=== PATIENT | female | born 2000 | race Caucasian/White ===

== ENCOUNTER 2024-03-06 09:38 | Inpatient (IN) | payer BC, MEDICAID, SELFPAY ==
[2024-03-06] VITALS (40 sets, daily range): BP systolic 116–143; BP diastolic 59–97; PULSE 54–100; RESP 17; TEMP 35.9–36.7; O2SAT 80–99; BMI 27.4
[2024-03-06 10:05] LABS: Basophils % 0.3 %; Eosinophils % 0.3 %; Hematocrit 37.3 % (36-47); Lymphocytes # 1.7 10^3/uL (0.8-4.8); Lymphocytes % 11.4 %; Mean Corpuscular HGB Conc 32.2 g/dL (30-55); Mean Corpuscular Hemoglobin 26.3 pg (27-33); Mean Corpuscular Volume 81.8 fl (85-98); Mean Platelet Volume 11.7 fL (7.4-10.4); Monocytes % 6.8 %; Neutrophils # 12.06 10^3/uL (1.8-7.7); Neutrophils % 80.5 %; Nucleated Red Blood Cells % 0 %; Platelet Count 330 10^3/cmm (157-399); Red Blood Count 4.56 10^6/uL (3.85-5.65); Red Cell Distribution Width 12.3 % (12.1-15.1); White Blood Count 14.96 10^3/uL (3.29-11.43)
--- NOTE | 2024-03-06 11:10 | ANES.PROC ---
Anesthesia Procedures Procedure/Date: 03/06/24 Epidural: Time Out Performed: Yes Consents Signed: Procedure Consent Consent: requested by attending/covering physician, from patient, risks and benefits reviewed and patient agrees to proceed Lumbar Level: L3-L4 Epidural position: sitting Epidural procedure: sterile prep of area, 1% lidocaine to numb the area, negative for paresthesia passed, neg for paresthesia, test dose given, no systemic response, sterile dressing applied, L.U.D. no apparent complications and 0.2% Ropiavacaine @ mls/hr (10 ml) Additional Comments: Epidural successful on second attempt. ANMOL at 7cm Catheter threaded to 12cm 100mcg Fentanyl given via epidural. 2% Lidocaine given after test dose 5ml total. Patient reported adequate analgesia.
[2024-03-06] MEDS: betamethasone susp 6 mg/mL 1 mL (per mL) 12 MG IM (12:11)
[2024-03-06 12:42] LABS: Amphetamines Screen Urine Negative (Negative); Barbiturates Screen Urine Negative (Negative); Benzodiazepines Screen Urine Negative (Negative); Cocaine Screen Urine Negative (Negative); Opiate Screen Urine Negative (Negative); PCP Screen Urine Negative (Negative); THC Screen Urine Negative (Negative)
--- NOTE | 2024-03-06 13:39 | P.HP_ITS ---
Providers/Chief Complaint 2 Admitting Physician: Ilya Benites MD HPI OUTPATIENT ADMITTING CLERK History of Present Illness Rubi Pierce is a 23 year old female G1, P0 with an estimated gestational age at 34+2 weeks transferred from [facility] [place] with complaint of pain. She is from [facility]. No records on care available at this time. Present Details : 1 Para: 0 Review of Systems 2 Narrative: movement: no Const: Denies: fever(s) or chills Card: Denies: chest pain, palpitations, irregular heart rhythm or syncope Resp: Denies: dyspnea GI: Denies: abdominal pain, nausea or vomiting : Reports: other (Contraction pain); Denies: flank pain, dysuria, urinary frequency or urinary urgency Musc: Denies: back pain or extremity swelling Skin/Breast: Denies: rash, pruritus, breast pain, nipple discharge or breast mass Neuro: Denies: headache(s), difficulty walking, dizziness or restless legs Psych: Denies: anxiety, depression or mood swings Endo: Denies: polyuria, tired all the time, cold intolerance or heat intolerance Hilario/Lymph: Denies: easy bruising, easy bleeding, petechiae or purpura All/Imm: Denies: urticaria Medications/Allergies Home Medications Medication Instructions Recorded Confirmed Last Taken Type No Known Home Medications 03/07/24 03/07/24 Unknown History Allergies Allergy/AdvReac Type Severity Reaction Status Date / Time Alpha-Gal Allergy ALGY-Anaphy Verified 03/06/24 18:32 (Dkyxixrhg-Udohb-8,3-Gala laxis Beef Containing Products Allergy ALGY-Anaphy Verified 03/06/24 18:32 laxis pork derived (porcine) Allergy ALGY-Anaphy Verified 03/06/24 18:32 laxis Vitals/I&O/Wt Last Vital Signs Temp 96.6 F L 03/06/24 10:54 Pulse 61 03/06/24 13:09 BP 130/85 03/06/24 13:37 Pulse Ox 80 L 03/06/24 10:47 O2 Del Method Room Air 03/06/24 09:20 Weight last 48 hrs Weight 68.039 kg Physical Exam 2 Narrative: GA: Alert and oriented ?3. Lungs: Clear to auscultation bilaterally. Heart: Regular rhythm and rate. Abdomen: Gravid, full the height equals dates, nontender. NUTRITION INTERN: SVE; dilation: 5-6 cm, effacement: 90%, station: 0, presentation: Cephalic, membranes: Intact memory. Extremities: no edema, no cyanosis, no calves pain. heart tracing: Basal rate: 140's bpm, Variability: moderate, Accelerations: present, Decelerations: absent, Contraction: q3min. Urinary Catheter Management: Lloyd: Cath Placed During This Visit: yes Urinary Catheter Date of Insertion: 03/06/24 Urinary Catheter Time of Insertion: 11:30 Data 03/07/24 01:57 Results Labs OB ([facility]): 2 Blood Type B Positive 03/06/24 Antibody Screen Negative 03/06/24 Hct 29.9 % (36-47) L 03/07/24 Hgb 9.90 g/dL (11.27-16.99) L 03/07/24 Rho(D) Type Rh positive 03/06/24 Plt Count 265 10^3/cmm (157-399) 03/07/24 C.trachomatis RNA (TMA) Pending 03/06/24 N.gonorrhoeae RNA (TMA) Pending 03/06/24 Chlamydia/GC Comment Pending 03/06/24 Urine Opiates Screen Negative ng/mL (Negative) 03/06/24 Ur Barbiturates Screen Negative ng/mL (Negative) 03/06/24 Ur Phencyclidine Scrn Negative ng/mL (Negative) 03/06/24 Ur Amphetamines Screen Negative ng/mL (Negative) 03/06/24 U Benzodiazepines Scrn Negative ng/mL (Negative) 03/06/24 Urine Cocaine Screen Negative ng/mL (Negative) 03/06/24 U Marijuana (THC) Screen Negative ng/mL (Negative) 03/06/24 A&P Assessment and plan (1) 34 weeks gestation of : Mrs. Alvarez 23-year-old female G1, P0 with an estimated gestational age at 34 weeks +2 days. Transfer from [facility] with a chief complaint of pain upon her arrival cervix was dilated to 6 cm 90% effacement. 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 (2) Active labor: Plan Anticipate vaginal delivery Attestations 2 Medical Necessity Statement*: In my professional opinion per admitting diagnosis Coding Level of Care Code Acute Code for Chg Fwd Diagnoses 34 weeks gestation of Z3A.34 Active labor O60.00
--- NOTE | 2024-03-06 13:42 | P.PCNOB_ITS ---
Delivery Note: Date of delivery: March 06, 2024 Pre-delivery diagnoses: labor Post-delivery diagnoses: delivered labor Procedure: Spontaneous vaginal delivery Op report anesthesia: Epidural Delivering Physician: Ilya Benites MD Estimated blood loss (mL): 300 Pre-Delivery Course: 23-year-old female G1, P0 with an estima swapna stational age at 34 weeks, can transfer in active labor from [facility] [place]. care from provider in [facility]. Delivery: The patient was noted to be complete and pushing, so was placed in the dorsal lithotomy position, prepped and draped in the usual sterile fashion for a vaginal delivery. Pt. Noted to have epidural anesthesia. At 1324 the patient delivered a viable at 34+2 weeks male infant weighing 2270 g with scores of 8 and 8 at one and five minutes, respectively. The vertex was delivered spontaneously over intact perineum. The patient was asked to push and the head delivered spontaneously in the CIERRA position, over an intact perineum. A nuchal cord was checked and 1 noted, and relieved around head as necessary. The anterior shoulder delivered easily and the posterior shoulder followed. The remainder of the infant was easily delivered and the oropharynx and nasopharynx was bulb suctioned. The infant was noted to have spontaneous cry and spontaneous movement of all four extremities. The cord was clamped x 2 and cut and noted to have 2 arteries and one vein. The infant was passed to the mother's abdomen where nursing and tip scourer personnel were in attendance. The placenta delivered intact spontaneously and the uterus was explored. 20 units of Pitocin was placed in the IV bag to firm the uterus. Examination of the cervix and vaginal vault did not reveal any lacerations. A vaginal pack was then placed. Examination of the perineum showed no lacerations. The vaginal pack was then removed. The patient tolerated this procedure well, and recovered in L&D with her infant in their LDR room. All sponge and needle counts were correct. Post-Delivery Status: Good and hemodynamically stable Coding Level of Care Code Acute Code for Chg Fwd
[2024-03-06] MEDS: ibuprofen 800 mg tablet PO ×2 (16:07→21:15)
[2024-03-06] MEDS: benzocaine-menthol 78 gm Canister 1 SPRAY TOPICAL (16:08)
[2024-03-06] MEDS: docusate sodium 100 mg Capsule PO (19:16)
[2024-03-07 02:02] LABS: Hematocrit 29.9 % (36-47); Mean Corpuscular HGB Conc 33.1 g/dL (30-55); Mean Corpuscular Hemoglobin 26.8 pg (27-33); Mean Platelet Volume 11.5 fL (7.4-10.4); Platelet Count 265 10^3/cmm (157-399); Red Blood Count 3.69 10^6/uL (3.85-5.65); Red Cell Distribution Width 12.2 % (12.1-15.1); White Blood Count 21.59 10^3/uL (3.29-11.43)
[2024-03-07 05:37] VITALS: BP 101/50; PULSE 67; RESP 16; TEMP 36.7; O2SAT 99
[2024-03-07] MEDS: PRENATAL VIT NO.130/IRON/FOLIC 1 EACH TABLET PO (09:26)
[2024-03-07] MEDS: ibuprofen 800 mg tablet PO (09:26)
[2024-03-07] MEDS: docusate sodium 100 mg Capsule PO (09:26)
--- NOTE | 2024-03-07 09:55 | P.DS_ITS ---
Discharge Providers SENIOR ENVIRONMENTAL TECHNICIAN Date of Admission: 03/06/24 09:38 Date of Discharge: 03/07/24 Attending Provider at Admission: Ilya Benites MD Attending Provider at Discharge: Ilya Benites MD Diagnoses at Discharge Discharge Diagnosis (1) 34 weeks gestation of : Status: Acute (2) Active labor: Status: Acute Reason for Visit Reason for Visit: Brief History: Mrs. Pierce 23-year-old female G1, P0 with an estimated gestational age at 34 weeks +2 days was transferred from [facility] in active labor. Upon her arrival she was 6 cm dilated with 90% effacement and regular contractions. Hospital Course Hospital Course Mrs. Stan France-year-old female Remi, P1 status post spontaneous vaginal delivery at 34 weeks +2 days. She was admitted, given antibiotics, and steroid for lung maturation. She progressed rapidly to have a spontaneous vaginal delivery of a male with a weight 2270 g, Apgars 8/8. The has been transferred to [facility] and the patient requested to be discharged earlier than 24 hours observation to go to [place] where the infant was transferred to. She is afebrile hemodynamically stable day 1. Ambulating without difficulty. Tolerating diet well. She was counseled regarding pelvic rest for 6 weeks (no sex, no tampons, no vaginal douches). Return to the emergency room if any fever, increased bleeding or pain. Information Peripartum Data: Delivery Method: Vaginal Physical Exam Narrative: GA; alert and oriented x 3 HEENT: normal Breasts: engorged Nipples - skin intact Lungs; clear to auscultation Heart: regular rhythm, no murmurs. Abd: Appropriately tender. BS+. Uterine fundus below umbilicus. No Fundal Tenderness. Perineum: normal lochia. Extremities: no edema, no cyanosis, no tenderness. Urinary Catheter Management: Lloyd: Cath Placed During This Visit: yes Urinary Catheter Date of Insertion: 03/06/24 Urinary Catheter Time of Insertion: 11:30 Discharge Data Studies Completed and Pending Pending at discharge Category Date Time Status Chlamydia/Gonorrh RNA,TMA URO Stat Lab 03/06/24 09:50 Received Laboratory Results WBC 21.59 10^3/uL (3.29-11.43) H 03/07/24 01:57 RBC 3.69 10^6/uL (3.85-5.65) L 03/07/24 01:57 Hgb 9.90 g/dL (11.27-16.99) L 03/07/24 01:57 Hct 29.9 % (36-47) L 03/07/24 01:57 MCV 81.0 fl (85-98) L 03/07/24 01:57 MCH 26.8 pg (27-33) L 03/07/24 01:57 MCHC 33.1 g/dL (30-55) 03/07/24 01:57 RDW 12.2 % (12.1-15.1) 03/07/24 01:57 Plt Count 265 10^3/cmm (157-399) 03/07/24 01:57 MPV 11.5 fL (7.4-10.4) H 03/07/24 01:57 Neut % (Auto) 80.5 % 03/06/24 09:50 Lymph % (Auto) 11.4 % 03/06/24 09:50 [place] % (Auto) 6.8 % 03/06/24 09:50 Eos % (Auto) 0.3 % 03/06/24 09:50 Baso % (Auto) 0.3 % 03/06/24 09:50 Neut # (Auto) 12.06 10^3/uL (1.8-7.7) H 03/06/24 09:50 Lymph # (Auto) 1.7 10^3/uL (0.8-4.8) 03/06/24 09:50 [place] # (Auto) 1.0 10^3/uL (0.2-0.9) H 03/06/24 09:50 Eos # (Auto) 0.0 10^3/uL (0.0-0.8) 03/06/24 09:50 Baso # (Auto) 0.0 10^3/uL (0.0-0.1) 03/06/24 09:50 Nucleated RBC % (auto) 0 % 03/06/24 09:50 Nucleated RBCs # 0.0 /100WBC 03/06/24 09:50 Urine Opiates Screen Negative ng/mL (Negative) 03/06/24 12:30 Ur Barbiturates Screen Negative ng/mL (Negative) 03/06/24 12:30 Ur Phencyclidine Scrn Negative ng/mL (Negative) 03/06/24 12:30 Ur Amphetamines Screen Negative ng/mL (Negative) 03/06/24 12:30 U Benzodiazepines Scrn Negative ng/mL (Negative) 03/06/24 12:30 Urine Cocaine Screen Negative ng/mL (Negative) 03/06/24 12:30 U Marijuana (THC) Screen Negative ng/mL (Negative) 03/06/24 12:30 Blood Type B Positive 03/06/24 09:50 Rho(D) Type Rh positive 03/06/24 09:50 Antibody Screen Negative 03/06/24 09:50 Vitals Last Vital Signs Temp 98.0 F 03/07/24 05:37 Pulse 67 03/07/24 05:37 Resp 16 03/07/24 05:37 BP 101/50 03/07/24 05:37 Pulse Ox 99 03/07/24 05:37 O2 Del Method Room Air 03/07/24 05:37 Results Labs OB ([facility]): Blood Type B Positive 03/06/24 Antibody Screen Negative 03/06/24 Hct 29.9 % (36-47) L 03/07/24 Hgb 9.90 g/dL (11.27-16.99) L 03/07/24 Rho(D) Type Rh positive 03/06/24 Plt Count 265 10^3/cmm (157-399) 03/07/24 C.trachomatis RNA (TMA) Pending 03/06/24 N.gonorrhoeae RNA (TMA) Pending 03/06/24 Chlamydia/GC Comment Pending 03/06/24 Urine Opiates Screen Negative ng/mL (Negative) 03/06/24 Ur Barbiturates Screen Negative ng/mL (Negative) 03/06/24 Ur Phencyclidine Scrn Negative ng/mL (Negative) 03/06/24 Ur Amphetamines Screen Negative ng/mL (Negative) 03/06/24 U Benzodiazepines Scrn Negative ng/mL (Negative) 03/06/24 Urine Cocaine Screen Negative ng/mL (Negative) 03/06/24 U Marijuana (THC) Screen Negative ng/mL (Negative) 03/06/24 Discharge Plan Discharge Patient Disposition: Home Condition: Stable Prescriptions: New ibuprofen 800 mg tablet 800 mg PO TID PRN (Reason: pain) Qty: 60 0RF ferrous sulfate [Iron (ferrous sulfate)] 325 mg (65 mg iron) tablet 325 mg PO BID Qty: 60 0RF docusate sodium [Colace] 100 mg capsule 100 mg PO BID Qty: 60 0RF acetaminophen 325 mg capsule 325 mg PO Q4H PRN (Reason: fever or pain) Qty: 60 0RF Discharge Orders: Discharge Order (Routine); Ordered 03/07/24 Ordered By: Ilya Benites Referrals: Ilya Benites MD [Physician] - 6 Weeks Discharge Diet: Usual diet Discharge Activity: Limit activity as instructed Patient Instructions: Depression (DC), Bleeding (DC), Preeclampsia and Eclampsia After Delivery (GEN), Hemorrhage (DC), OB Discharge Report, OB Anesthesia Instructions, OB Food/Drug Interaction Guide, Opioid Safety, OB Home Care, OB Proud Parent Packet Activity Restrictions/Additional Instructions: 1. Please call [facility] clinic on next working day to make your post-operative appointment in 2 weeks. 2. Please stay home until you come back to the clinic on first post- hospatilization check up. 3. Please follow instructions on your medications CAREFULLY. 4. If you have abdominal incision, do not cover it unless dressing is necessary because of drainage. OK to shower, but avoid bath. Leave steri-strips until they fall off. If they are still on one week after surgery, you may remove them. 5. If you had vaginal surgery or vaginal repair, Dr. Benites may instruct you to take SITZ bath. 6. Yellow, blood tinged odorous vaginal discharge is usually normal after hysterectomy or vaginal surgeries. 7. No SEXUAL INTERCOURSE, tampons, or douches until you are completely released from the post-operative care. 8. Avoid constipation by eating right and maybe using some Metamucil or Milk of Magnesia. 9. All prescription refills are given during the working hours. Please do no wait till it runs out. Call the clinic at [phone] before your medication runs out. The clinic will get in touch with your doctor to prescribe medications if necessary. 10. Please remain within 40 mile radius from our hospital because emergencies do happen now and then during the post-operative period. 11. If you have stairs at home, take one step at a time slowly and minimize the number of trips. It helps to stay in one floor for the next few days. No lifting except what you can lift by one hand until you are released from the post-operative care. 12. Driving is discouraged until you are well healed. It may be 3-4 weeks before you feel strong enough to drive. You should be able to turn and look thr ough the rear window without pain and you should be able to push the brake pedal very hard without pain before you drive. No fast rules, but SAFETY should be your primary concern. DO NOT drive if you are on sedating medications such as narcotics. 13. Call the clinic (during working hours) to make urgent appointment or go to the Emergency room, if any of the following occurs: i. Vaginal bleeding becomes heavy, more than a period. ii. Incision becomes red and sore, or drains pus. iii. Your TEMPERATURE is over 100.4F or you have chill. iv. IV site becomes red and swollen (a little ``knot?? is usually OK) v. Persistent nausea and vomiting vi. Persistent constipation or diarrhea vii. Rash or allergic reaction to medications. Discharge Attestations SENIOR ENVIRONMENTAL TECHNICIAN Time Spent in Discharge Care*: greater than 30 min Coding Level of Care Code Acute Code for Chg Fwd Diagnoses 34 weeks gestation of Z3A.34 Active labor O60.00
[2024-03-07 10:00] VITALS: BP 112/74; PULSE 64; RESP 16; TEMP 36.7
[2024-03-07 10:54] VITALS: BP 112/74; PULSE 64; RESP 16; TEMP 36.7
--- NOTE | 2024-03-08 08:00 | P.ANESPOST_ITS ---
Inpatient post-anesthesia follow up: Airway intact: Yes Vital signs: Temperature 98.0 F Pulse Rate 64 Respiratory Rate 16 Blood Pressure 112/74 Pulse Oximetry 99 Oxygen Delivery Me thod Room Air Oxygen Flow Rate Fraction of Inspir ed Oxygen Hydration adequate: Yes Nausea and vomiting: No Pain level: 1 Epidural Start/End: Epidural Start Date: 03/06/24 Epidural Start Time: 10: 00 Epidural End Date: 03/06/24 Epidural End Time: 15:15
[2024-03-08 17:05] LABS: Chlamydia Trachomatis RNA TMA NOT DETECTED (NOT DETECTED); Neisseria Gonorrhoeae RNA, TMA NOT DETECTED (NOT DETECTED)
== END 2024-03-07 10:56 | disposition home or self-care (01) | DRG 807 ==
PROVIDERS: Admitting Provider Obstetrics & Gynecology; Visit Provider Obstetrics & Gynecology
DX: O60.14X0 Preterm labor third trimester with preterm delivery third trimester, not applicable or unspecified (principal); Z37.0 Single live birth; Z3A.34 34 weeks gestation of pregnancy
CPT/HCPCS: 36415; 51702; 59409; 80306; 85025; 85027; 86850; 86900; 87491; 87591; 96372; 99211; J0702; J3010